=== PATIENT | male | born 1995 | race African-American/Black ===

== ENCOUNTER 2018-03-15 22:07 | Emergency (ER) | payer SELFPAY ==
[~2018-03-15] VITALS: Ht 175.3 cm; Wt 123.0 kg
[2018-03-15 22:22] VITALS: BP 137/96
[2018-03-15] MEDS ORDERED: IBUPROFEN 800 MG TABLET ONE (22:42)
[2018-03-15] MEDS ORDERED: IBUPROFEN 800 MG TABLET PO ONE (23:00)
[2018-03-15] MEDS ORDERED: DEXAMETHASONE 4 MG TABLET PO ONE (23:30)
[2018-03-15] MEDS ORDERED: DEXAMETHASONE 4 MG TABLET ONE (23:31)
== END 2018-03-15 23:39 | disposition home or self-care (01) ==
LOC: ED 23:35
DX: J02.8 Acute pharyngitis due to other specified organisms (principal); B97.89 Other viral agents as the cause of diseases classified elsewhere; F17.200 Nicotine dependence, unspecified, uncomplicated
CPT/HCPCS: 87081; 87880; 99283